=== PATIENT | male | born 1990 | race African-American/Black ===

== ENCOUNTER 2017-03-05 14:19 | Emergency (ER) | payer MEDICAID ==
[2017-03-05] MEDS ORDERED: oxyCODONE/Acetamin 5/325 MG* TAB PO ONE (15:40)
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
[2017-03-05 18:50] VITALS: BP 127/76
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
== END 2017-03-05 18:49 | disposition home or self-care (01) ==
LOC: ED 14:19
DX: R91.1 Solitary pulmonary nodule (principal); S22.32XA Fracture of one rib, left side, initial encounter for closed fracture; S01.01XA Laceration without foreign body of scalp, initial encounter; R51 Headache; S40.011A Contusion of right shoulder, initial encounter; M25.512 Pain in left shoulder; Y09 Assault by unspecified means; Y92.9 Unspecified place or not applicable; Y99.9 Unspecified external cause status
CPT/HCPCS: 12001; 70450; 72125; 99283; A9270-GY

== ENCOUNTER → 2017-03-23 10:11 | Emergency (ER) | payer MEDICAID ==
[2017-03-23 10:14] VITALS: BP 117/68
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
== END | disposition home or self-care (01) ==
LOC: ED 10:11
DX: Z48.02 Encounter for removal of sutures (principal)
CPT/HCPCS: 99281

== ENCOUNTER 2019-12-04 09:06 | Inpatient (IN) | payer MEDICAID, OTHER ==
[2019-12-04] MEDS ORDERED: NS 0.9% 1000 ML** 1,000 ML IV ONE ×3 (09:18→13:10)
[2019-12-04] MEDS ORDERED: Thiamine INJ* 100 MG/ML 2 ML VIAL IV ONE (09:18)
[2019-12-04] MEDS ORDERED: Multivitamins/Minerals TAB PO ONE (09:18)
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
[2019-12-04] MEDS ORDERED: Dextrose 50% Syringe 50 ML* 25 GM/50 ML SYRINGE IV PUSH ONE (09:27)
[2019-12-04 09:45] LABS: ABS Basophils 0.1 10^3/ul (0-0.2); ABS Monocytes 0.9 10^3/ul (0-0.8); ABS Neutrophils 19.8 10^3/ul (1.5-7.7); Eosinophil % 0.2 %; Hematocrit 49 % (42-52); Hemoglobin 16.6 g/dL (14.0-18.0); Lymphocyte % 12.5 %; Mean Corpuscular HGB Conc 34 g/dL (31-36); Mean Corpuscular Hemoglobin 32 pg (27-31); Mean Corpuscular Volume 94 fL (80-94); Nucleated Red Blood Cells % 0.2; Platelet Count 272 10^3/uL (150-450); Red Blood Count 5.27 10^6 /uL (4.18-5.48); Red Cell Distribution Width 14 % (10-15); White Blood Count 23.8 10^3/uL (3.5-10.8)
[2019-12-04] MEDS ORDERED: Thiamine IV 100 MG in NS 0.9% 50 ML Q24H IV ONE (10:00)
[2019-12-04 10:01] LABS: Albumin 4.8 g/dL (3.2-5.2); Albumin/Globulin Ratio 1.4 (1-3); BUN/Creatinine Ratio 14.9 (8-20); Calcium 9.5 mg/dL (8.6-10.3); EGFR African American 114.8 (>60); EGFR Non-African American 94.9 (>60); Globulin 3.4 g/dL (2-4); Potassium 3.4 mmol/L (3.5-5.0); Total Bilirubin 0.5 mg/dL (0.2-1.0); Total Protein 8.2 g/dL (6.4-8.9)
[2019-12-04] MEDS ORDERED: Ondansetron INJ* 2 MG/ML VIAL IV ONE (10:03)
[2019-12-04] MEDS ORDERED: Piperacillin/Tazobac ADVAN(*) 3.375 GM in NS 0.9% 100 ML* 100 ML IVPB ONE (11:03)
[2019-12-04] MEDS ORDERED: Potassium Chlor TAB* 20 MEQ TAB.ER PO ONE (11:25)
[2019-12-04] MEDS ORDERED: Vancomycin(*) 1,250 MG IV x ONCE IVPB ONE ×2 (11:30)
[2019-12-04] MEDS ORDERED: Ondansetron INJ* 2 MG/ML VIAL IV PRN (11:59)
[2019-12-04] MEDS ORDERED: Albuterol 2.5 MG/3 ML NEB.SOL* (0.083%) INH PRN (11:59)
[2019-12-04] MEDS ORDERED: Acetaminophen TAB* 325 MG PO PRN (11:59)
[2019-12-04] MEDS ORDERED: Al Hydrox/Mg Hydrox/Simet LIQ* 30 ML UDC PO PRN (11:59)
[2019-12-04] MEDS ORDERED: Senna TAB 8.6 mg* TAB PO PRN (11:59)
[2019-12-04] MEDS ORDERED: Vancomycin(*) 1,000 MG VIAL IVPB SCH (12:00)
[2019-12-04 12:01] LABS: Influenza A Molecular Negative (Negative); Influenza B Molecular Negative (Negative)
[2019-12-04 12:20] LABS: Rapid Strep Molecular Negative (Negative)
[2019-12-04 12:57] LABS: CRP High Sensitivity 1.63 mg/L (<2.00)
[2019-12-04] MEDS ORDERED: Vancomycin per Pharmacy* NOTE FOLLOW UP SCH (13:00)
[2019-12-04] MEDS ORDERED: LORazepam TAB(*) 1 MG PO SCH (13:00)
[2019-12-04] MEDS: KCL 20 MEQ/100 ML IVPREMIX* 20 MEQ/100 ML BAG IV SCH ×2 (13:17→17:05)
[2019-12-04 13:39] LABS: HIV 4th Generation Nonreactive (Nonreactive)
[2019-12-04 13:43] LABS: Erythrocyte Sed Rate 3 mm/Hr (0-14)
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
[2019-12-04 15:19] LABS: Urine Benzodiazepine Screen None Detected (None Detect); Urine Opiates Screen None Detected (None Detect)
[2019-12-04 15:23] LABS: Urine Bacteria Absent (Absent); Urine Red Blood Cell Absent (Absent); Urine White Blood Cell Trace(0-5/hpf) (Absent)
[2019-12-04 15:47] LABS: Urine Color Straw
[2019-12-04 15:48] LABS: Urine Appearance Cloudy
[2019-12-04 15:49] LABS: Urine Ketones 1+ (Negative); Urine Protein 1+(30 mg/dL) (Negative); Urine Urobilinogen Negative (Negative)
[2019-12-04 15:50] LABS: Urine Bilirubin Negative (Negative); Urine Blood Negative (Negative); Urine Glucose 3+(>=500 mg/dL) (Negative); Urine Nitrite Negative (Negative)
[2019-12-04] MEDS: Cefepime 2 GM in Dextrose(*) 2 GM/50 ML BAG IV SCH (17:17)
--- NOTE | 2019-12-04 17:24 | PN ---
Sepsis Event Evaluation Date of Evaluation: 12/04/19 Time of Evaluation: 17:15 Current Stage of Sepsis: Sepsis - only 1 SIRS criterion present (leukocytosis) Vital Signs - Last 12 Hours: Vital Signs - 12 hr Temp Pulse Resp BP Pulse Ox 12/04/19 14:03 98.6 F 79 20 123/68 100 12/04/19 13:45 99.3 F 84 21 121/81 95 12/04/19 13:16 84 19 121/74 96 12/04/19 13:09 16 12/04/19 13:00 87 14 85 12/04/19 12:46 80 16 114/67 12/04/19 12:16 84 14 124/80 100 12/04/19 12:00 96 26 99 12/04/19 11:46 90 15 112/74 100 12/04/19 11:18 95 18 120/94 98 12/04/19 11:00 83 15 98 12/04/19 10:47 88 23 105/77 98 12/04/19 10:16 99 16 108/65 100 12/04/19 10:01 97.7 F 88 24 123/79 98 12/04/19 10:00 92 16 97 12/04/19 09:46 98 17 123/79 97 12/04/19 09:23 96 17 99 12/04/19 09:16 83 26 109/83 100 12/04/19 09:11 97.7 F 93 18 109/83 98 Lactic Acid: 12/04/19 12/04/19 12/04/19 10:23 12:33 15:56 Lactic Acid 4.7 H* 2.8 H* 0.9 - Cardiopulmonary Exam Capillary Refill: Immediate Respiratory: Symmetrical Chest Expansion and Respiratory Effort Cardiovascular: No Edema - Peripheral Pulse Exam Radial Pulses: Bilateral Normal Pedal Pulses: Bilateral Normal - Skin Exam Skin Exam: Normal Turgor - [place] Coma Scale Best Eye Response: 4 - Spontaneous Best Motor Response: 6 - Obeys Commands Best Verbal Response: 5 - Oriented Coma Scale Total: 15 Assess/Plan/Problems-Billing Assessment: 29 yo black male with PMHx alcohol use presents with generalized weakness and fatigue, found to have severe sepsis with unclear etiology. #severe sepsis. At this time, etiology is still unclear. Monospot negative. UA does not appear to be consistent with UTI. Rapid strep negative. At this time signs of severe sepsis have resolved and patient only has 1 SIRS criterion present (leukocytosis). As mentioned in H&P, the infectious agent may be viral. Continuing IV empiric abx nonetheless. #lactic acidosis. Repeat lactic acid was still elevated and ordered additional 1L NS bolus; lactic acidosis is now resolved. As mentioned in H&P, alcoholic ketoacidosis may have been contributing as well rizwan considering UA with +1 ketones.
[2019-12-04] MEDS: Vancomycin(*) 1,000 MG in NS 0.9% 250 ML* 250 ML IV SCH (18:14)
[2019-12-05] MEDS: Vancomycin(*) 1,000 MG in NS 0.9% 250 ML* 250 ML IV SCH ×2 (00:10→06:37)
[2019-12-05] MEDS: Cefepime 2 GM in Dextrose(*) 2 GM/50 ML BAG IV SCH (05:23)
[2019-12-05 06:02] LABS: ABS Basophils 0.1 10^3/ul (0-0.2); ABS Eosinophils 0.1 10^3/ul (0-0.6); ABS Lymphocytes 2.8 10^3/ul (1.0-4.8); ABS Monocytes 1.1 10^3/ul (0-0.8); ABS Neutrophils 5.8 10^3/ul (1.5-7.7); Eosinophil % 0.5 %; Hematocrit 40 % (42-52); Hemoglobin 13.7 g/dL (14.0-18.0); Lymphocyte % 28.7 %; Mean Corpuscular HGB Conc 34 g/dL (31-36); Mean Corpuscular Hemoglobin 32 pg (27-31); Mean Corpuscular Volume 93 fL (80-94); Mean Platelet Volume 9.2 fL (7.4-10.4); Nucleated Red Blood Cells % 0.1; Platelet Count 206 10^3/uL (150-450); Red Blood Count 4.29 10^6 /uL (4.18-5.48); Red Cell Distribution Width 14 % (10-15); White Blood Count 9.9 10^3/uL (3.5-10.8)
[2019-12-05 06:09] LABS: BUN/Creatinine Ratio 10.7 (8-20); Calcium 8.5 mg/dL (8.6-10.3); EGFR African American 130.7 (>60); Potassium 4.3 mmol/L (3.5-5.0)
[2019-12-05] MEDS ORDERED: Folic Acid TAB* 1 MG PO SCH (09:00)
[2019-12-05] MEDS ORDERED: Thiamine TAB* 100 MG TAB PO SCH (09:00)
[2019-12-05] MEDS ORDERED: Multivitamins/Minerals TAB PO SCH (09:00)
[2019-12-05] MEDS ORDERED: D5NS 0.9% 1000 ML BAG* 1,000 ML IV SCH (11:00)
--- NOTE | 2019-12-05 11:09 | PN ---
Subjective Date of Service: 12/05/19 Interval History: Blood glucoses have been in the 50's this Am, totally asymptomatic. Denies feeling lightheaded, dizzy, chest pain, palpitations, abdominal pain, nausea, vomiting, issues moving bladder. He had 2 liquid BM's this morning,which is new from yesterday. Family History: Unchanged from Admission Social History: Unchanged from Admission Past Medical History: Unchanged from Admission Objective Active Medications: Acetaminophen (Tylenol Tab*) 650 mg PO Q4H PRN PRN Reason: MILD PAIN or TEMP > 100.4 Al Hydrox/Mg Hydrox/Simethicone (Maalox Plus*) 30 ml PO Q6H PRN PRN Reason: INDIGESTION Albuterol (Ventolin 2.5 Mg/3 Ml Neb.Jeanna*) 2.5 mg INH [id number] AWAKE PRN PRN Reason: sob/wheezing Folic Acid (Folvite Tab*) 1 mg PO DAILY [facility] Last Admin: 12/05/19 08:08 Dose: 1 mg Cefepime HCl (Maxipime 2 Gm In Dextrose Duplex (*)) 2 gm in 50 mls @ 100 mls/ hr IV Q12H [facility] Last Admin: 12/05/19 05:23 Dose: 100 mls/hr Vancomycin HCl 1,000 mg/ (Sodium Chloride) 250 mls @ 166.667 mls/hr IV Q6HR [facility] Last Admin: 12/05/19 06:37 Dose: 166.667 mls/hr Dextrose/Sodium Chloride (D5ns 0.9% 1000 Ml Bag*) 1,000 mls @ 75 mls/hr IV PER RATE [facility] Lorazepam (Ativan Tab(*)) 0 - 6 mg PO .PER WA PROTOCOL REBA; Protocol Multivitamins/Minerals (Theragran/Minerals Tab*) 1 tab PO DAILY [facility] Last Admin: 12/05/19 08:09 Dose: 1 tab Ondansetron HCl (Zofran Inj*) 4 mg IV Q4H PRN PRN Reason: NAUSEA/VOMITING Pharmacy Consult (Vancomycin Per Pharmacy*) 1 note FOLLOW UP .VANC PER PHARMACY REBA; Protocol Pharmacy Profile Note (Vancomycin Trough Check) 1 note FOLLOW UP ONCE ONE Stop: 12/05/19 11:31 Senna (Senokot 8.6 Mg Tab*) 1 tab PO BID PRN PRN Reason: CONSTIPATION Thiamine HCl (Vitamin B-1 Tab*) 100 mg PO DAILY [facility] Last Admin: 12/05/19 08:08 Dose: 100 mg Vital Signs - 8 hr 12/05/19 12/05/19 12/05/19 03:15 04:41 07:20 Temperature 97.9 F 98.8 F 98.5 F Pulse Rate 62 66 67 Respiratory 14 14 16 Rate Blood Pressure 118/72 113/74 110/67 (mmHg) O2 Sat by Pulse 100 100 100 Oximetry 12/05/19 12/05/19 07:32 09:00 Temperature 98.2 F Pulse Rate 70 Respiratory 16 16 Rate Blood Pressure 118/63 (mmHg) O2 Sat by Pulse 100 Oximetry Oxygen Devices in Use Now: None Appearance: Well developed young man seen sitting up in bed. Eyes: No Scleral Icterus, PERRLA Ears/Nose/Mouth/Throat: NL Teeth, Lips, Gums, Clear Oropharnyx, Mucous Membranes Moist Neck: NL Appearance and Movements; NL JVP, Trachea Midline Respiratory: Symmetrical Chest Expansion and Respiratory Effort, Clear to Auscultation Cardiovascular: NL Sounds; No Murmurs; No JVD, RRR, No Edema Abdominal: - - Abdomen soft, non-distended, tender to left lower quadrant, + BSx4. Lymphatic: No Cervical Adenopathy Extremities: No Edema, No Clubbing, Cyanosis Skin: No Rash or Ulcers, No Nodules or Sclerosis Neurological: Alert and Oriented x 3 Lines/Tubes/Other Access: Clean, Dry and Intact Peripheral IV Result Diagrams: 12/05/19 05:33 12/05/19 05:33 Microbiology and Other Data: Microbiology 12/04/19 10:23 Aerobic Blood Culture - Preliminary Blood Venous No Growth Day 1 Anaerobic Blood Culture - Preliminary No Growth Day 1 Assess/Plan/Problems-Billing Assessment: 29 yo black male with PMHx alcohol use presents with generalized weakness and fatigue, found to have severe sepsis with unclear etiology as well as hypoglycemia. - Patient Problems (1) Sepsis Current Visit: Yes Status: Acute (2) Hypoglycemia Current Visit: Yes Status: Acute Code(s): E16.2 - HYPOGLYCEMIA, UNSPECIFIED SNOMED Code(s): 518237425 (3) Alcohol use Current Visit: Yes Status: Acute Code(s): Z72.89 - OTHER PROBLEMS RELATED TO LIFESTYLE SNOMED Code(s): 183634 (4) Hypokalemia Current Visit: Yes Status: Acute Code(s): E87.6 - HYPOKALEMIA SNOMED Code( s): 62901752
[2019-12-05] MEDS ORDERED: Vancomycin Trough Check NOTE FOLLOW UP ONE (11:30)
[2019-12-05 13:30] LABS: Chlamydia trachomatis NAA Negative (Negative); Neisseria gonorrhoeae (GC) NAA Negative (Negative)
[2019-12-05 15:20] VITALS: BP 116/64
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
== END 2019-12-05 14:30 | disposition left against medical advice (07) | DRG 720 ==
LOC: ED 09:06 → MEDTELE 11:59 → UNDODISIN 12-05 14:30
PROVIDERS: ADMIT Internal Medicine; ATTEND Internal Medicine
DX: R65.20 Severe sepsis without septic shock (principal); E87.2 Acidosis; A41.9 Sepsis, unspecified organism; R07.9 Chest pain, unspecified; F10.10 Alcohol abuse, uncomplicated; Y90.5 Blood alcohol level of 100-119 mg/100 ml; R10.32 Left lower quadrant pain; E16.2 Hypoglycemia, unspecified; Z72.89 Other problems related to lifestyle
CPT/HCPCS: 36415; 71046; 80048; 80053; 80307; 80320; 81003; 81015; 82550; 82803; 83036; 83605; 83690; 84484; 85025; 85379; 85652; 86038; 86141; 86308; 87040; 87086; 87389; 87491; 87591; 87651; 93005; 99284; A9270-GY; G0480; J0692; J2405; J2543; J3370; J3411; J3480